=== PATIENT | female | born 1960 | race Caucasian/White ===

== ENCOUNTER → 2020-12-28 14:57 | Outpatient (BNVA) | payer SELFPAY | PROVIDERS: Family Provider Family Medicine; PCP Family Medicine; Visit Provider Emergency Medicine | DX: N39.0 Urinary tract infection, site not specified (principal); R11.0 Nausea; R31.9 Hematuria, unspecified | CPT/HCPCS: 81000 ==

== ENCOUNTER → 2024-06-29 14:13 | Outpatient (BNVA) | payer MEDICAID, SELFPAY | PROVIDERS: PCP Family Medicine; Visit Provider Family Medicine | DX: R32 Unspecified urinary incontinence (principal) | CPT/HCPCS: 81000; 87086 ==

== ENCOUNTER 2024-09-04 09:25 | Outpatient (CLI) | payer MEDICAID, SELFPAY ==
--- NOTE | 2024-09-04 09:30 | USR_ITS ---
PROCEDURE INFORMATION: Exam: US Soft Tissue Head and Neck, Thyroid Exam date and time: 09/04/2024 9:40 AM Age: 64 years old Clinical indication: Other: Hoarseness/dysphonia TECHNIQUE: Imaging protocol: Real-time ultrasound scan of the neck with image documentation. Exam focused on the thyroid. COMPARISON: No relevant prior studies available. FINDINGS: Thyroid isthmus was measured 0.3 cm. No normal thyroid tissue is detected in the right or the left however patient could have small residual thyroid tissue that blends in with the soft tissues. . History states previous thyroid ablation. I do not know if this was a smaller dose for hyperthyroidism or larger dose for carcinoma. Also I do not know how long ago this was performed. Further evaluation could be obtained with a neck CT or possibly nuclear medicine thyroid scan . There does appear to be a small normal appearing lymph node in the left thyroid fossa measuring 1.1 x 0.3 x 0.4 cm US/US thyroid [id number] IMPRESSION: See above
--- NOTE | 2024-09-04 09:33 | FL_ITS ---
WS: [id number] Exam: FL barium swallow modifd [id number] Date/Time of Exam: 09/04/2024 9:53 AM Reason For Exam: Pharyngeal dysphagia Fluoroscopy time: 2min [id number] minutes # of spot films: 0 Modified barium swallow test was performed in conjunction with the speech therapy service. The patient experienced very minimal penetration into the laryngeal inlet when ingesting thin liquid barium. The patient tolerated pudding and solid barium mixture foodstuffs without penetration or aspiration. The patient swallowed barium tablet without difficulty. The tablet was retained in the lower one third of the esophagus but was propelled into the stomach with a single drink of thin liquid barium. FL/FL barium swallow modifd [id number] IMPRESSION: 1. The patient experienced very minimal penetration when ingesting thin liquid barium. The exam was otherwise unremarkable. No aspiration was noted. A separate report and recommendations will follow from the speech therapy servi ce.
== END 2024-09-04 09:26 | disposition home or self-care (01) ==
PROVIDERS: PCP Family Medicine; Visit Provider Otolaryngology
DX: R49.0 Dysphonia (principal); E05.00 Thyrotoxicosis with diffuse goiter without thyrotoxic crisis or storm; R93.89 Abnormal findings on diagnostic imaging of other specified body structures
CPT/HCPCS: 74230; 76536; 92611

== ENCOUNTER → 2024-09-26 11:57 | Outpatient (BNVA) | payer MEDICARE, SELFPAY | PROVIDERS: PCP Family Medicine; Visit Provider Family Medicine | DX: I10 Essential (primary) hypertension (principal); E89.0 Postprocedural hypothyroidism; K21.9 Gastro-esophageal reflux disease without esophagitis; R49.0 Dysphonia; R32 Unspecified urinary incontinence | CPT/HCPCS: 80053; 80061; 84439; 84443; 85025 ==

== ENCOUNTER 2024-10-19 16:35 | Outpatient (CLI) | payer MEDICAID, SELFPAY ==
--- NOTE | 2024-10-19 16:47 | CT_ITS ---
WS: [id number] CT NECK TECHNIQUE: Contrast-enhanced CT of the neck with coronal and sagittal reformatted images. CLINICAL INFORMATION: DYSPHONIA, HOARSENESS COMPARISON: None. DLP: 208.[address] scans at [facility] use at least one of these dose optimization techniques: automated exposure control; mA and/or kV adjustment per patient size (includes targeted exams where dose is matched to clinical indication); or iterative reconstruction. FINDINGS: LEFT vocal cord paralysis with ballooning of the LEFT laryngeal ventricle. Medial rotation of the arytenoid. Normal posterior nasopharynx and parapharyngeal fat. No evidence of supraglottic or glottic mass. Normal subglottic airway. Normal submandibular glands. Fatty replacement of the parotid glands. Atrophic thyroid with nodularity. Enlarged lymph node LEFT lower neck with enhancement. Bulky lymphadenopathy supraclavicular, subpectoral, and bilateral axillary. Largest lymph nodes measure up to 2.2 cm with enhancement. Normal aortic arch. Lung apices are well aerated. Straightening of the normal cervical lordosis. Moderate spondylitic changes. CT/CT neck w con* [id number] IMPRESSION: 1. Prominent bulky supraclavicular, subpectoral, and axillary lymphadenopathy with enhancing lymph nodes. Enhancing lymph node in LEFT lower leg neck. Larges t lymph nodes measure up to 2.2 cm. Findings suspicious for metastatic disease or lymphoma. Recommend further evaluation with contrast-enhanced CT chest abdom en pelvis and/or PET/CT. Recommend oncology consultation. 2. LEFT vocal cord paralysis.
[2024-10-19] MEDS: iohexol 350 mg/mL 500 mL Btl (per mL) IV (17:13)
== END 2024-10-19 16:36 | disposition home or self-care (01) ==
PROVIDERS: PCP Family Medicine; Visit Provider Specialist
DX: R49.0 Dysphonia (principal); R13.19 Other dysphagia; R59.0 Localized enlarged lymph nodes; J38.01 Paralysis of vocal cords and larynx, unilateral
CPT/HCPCS: 70491

== ENCOUNTER 2024-10-26 16:38 | Outpatient (CLI) | payer MEDICAID, SELFPAY ==
--- NOTE | 2024-10-26 16:50 | CTR_ITS ---
PROCEDURE INFORMATION: Exam: CT Chest With Contrast; Diagnostic Exam date and time: 10/26/2024 5:09 PM Age: 64 years old Clinical indication: Abnormal findings; Abnormal radiologic exam of lung or chest; Lymphadenopathy seen on CT of neck 10-19-24 TECHNIQUE: Imaging protocol: Diagnostic computed tomography of the chest with contrast. Radiation optimization: All CT scans at this facility use at least one of these dose optimization techniques: automated exposure control; mA and/or kV adjustment per patient size (includes targeted exams where dose is matched to clinical indication); or iterative reconstruction. Contrast material: OMNIPAQUE 350; Contrast volume: 100 ml; Contrast route: INTRAVENOUS (IV); COMPARISON: CT neck w con* [id number] 10/19/2024 5:03 PM RADIATION DOSE METRICS: Total DLP (mGy-cm): 461.98 FINDINGS: Lungs: Unremarkable. No consolidation. No masses. Pleural spaces: Unremarkable. No pneumothorax. No pleural effusion. Heart: Unremarkable. No cardiomegaly. No pericardial effusion. Coronary arteries: No coronary artery calcifications. Lymph nodes: Bilateral axillary and left subpectoral lymphadenopathy, similar to prior with the largest node measuring 1.9 x 1.6 cm. Partially visualized enlarged left supraclavicular lymph node. Few subcentimeter mediastinal lymph nodes. No pathologic mediastinal lymphadenopathy. Vasculature: Unremarkable. No aortic aneurysm. Liver: Diffuse hepatic hypoattenuation. Gallbladder and biliary ducts: Status post cholecystectomy. No evidence of significant biliary obstruction. Bones/joints: Unremarkable. No acute fracture. Soft tissues: Unremarkable. CT/CT chest w con* [id number] IMPRESSION: 1. Bilateral axillary and left subpectoral lymphadenopathy, similar to prior with the largest node measuring 1.9 x 1.6 cm. Differential diagnosis again includes lymphoma and metastatic disease. 2. Few subcentimeter mediastinal lymph nodes. No pathologic mediastinal lymphadenopathy. 3. Hepatic steatosis.
[2024-10-26] MEDS: iohexol 350 mg/mL 500 mL Btl (per mL) IV (17:16)
== END 2024-10-26 16:39 | disposition home or self-care (01) ==
PROVIDERS: PCP Family Medicine; Visit Provider Specialist
DX: R59.9 Enlarged lymph nodes, unspecified (principal); K76.0 Fatty (change of) liver, not elsewhere classified; Z90.49 Acquired absence of other specified parts of digestive tract
CPT/HCPCS: 71260

== ENCOUNTER 2024-11-03 11:33 | Outpatient (CLI) | payer MEDICAID, SELFPAY ==
--- NOTE | 2024-11-03 11:38 | CTR_ITS ---
PROCEDURE INFORMATION: Exam: CT Chest With Contrast; Diagnostic Exam date and time: 11/03/2024 11:55 AM Age: 64 years old Clinical indication: Other: Enlarged lymph nodes; Additional info: Enlarged lymph nodes, stat TECHNIQUE: Imaging protocol: Diagnostic computed tomography of the chest with contrast. Radiation optimization: All CT scans at this facility use at least one of these dose optimization techniques: automated exposure control; mA and/or kV adjustment per patient size (includes targeted exams where dose is matched to clinical indication); or iterative reconstruction. Contrast material: OMNI 350; Contrast volume: 100 ml; Contrast route: INTRAVENOUS (IV); COMPARISON: CT chest w con* [id number] 10/26/2024 5:09 PM RADIATION DOSE METRICS: Total DLP (mGy-cm): 1018.48 FINDINGS: Lungs: Unremarkable. No consolidation. No masses. Pleural spaces: Unremarkable. No pneumothorax. No pleural effusion. Heart: Unremarkable. No cardiomegaly. No pericardial effusion. Coronary arteries: No coronary artery calcifications. Lymph nodes: Bilateral axillary lymphadenopathy measuring up to 1.7 cm on the left (series 4, image 11), and up to 1.1 cm on the right. Vasculature: Unremarkable. No aortic aneurysm. Bones/joints: Unremarkable. No acute fracture. Soft tissues: Unremarkable. PROCEDURE INFORMATION: Exam: CT Abdomen And Pelvis With Contrast Exam date and time: 11/03/2024 11:55 AM Age: 64 years old Clinical indication: Other: Enlarged lymph nodes; Additional info: Enlarged lymph nodes, stat TECHNIQUE: Imaging protocol: Computed tomography of the abdomen and pelvis with contrast. Radiation optimization: All CT scans at this facility use at least one of these dose optimization techniques: automated exposure control; mA and/or kV adjustment per patient size (includes targeted exams where dose is matched to clinical indication); or iterative reconstruction. Contrast material: OMNI 350; Contrast volume: 100 ml; Contrast route: INTRAVENOUS (IV); COMPARISON: CT chest w con* [id number] 10/26/2024 5:09 PM RADIATION DOSE METRICS: Total DLP (mGy-cm): 1018.48 FINDINGS: Liver: Diffuse hepatic steatosis. Gallbladder and biliary ducts: Status post cholecystectomy. Pancreas: No ductal dilation. Spleen: Unremarkable. Adrenal glands: Unremarkable. Kidneys and ureters: No hydronephrosis. Stomach and bowel: No obstruction. No mucosal thickening. Appendix: No evidence of appendicitis. Intraperitoneal space: No free air. No significant fluid collection. Vasculature: Unremarkable. Lymph nodes: Prominent bilateral inguinal and retroperitoneal lymph nodes without pathologic enlargement. Bilateral external iliac lymphadenopathy measuring up to 1.4 cm on the left and 1.5 cm on the right. Urinary bladder: Unremarkable as visualized. Reproductive: Unremarkable as visualized. Bones/joints: Unremarkable. No acute fracture. Soft tissues: Unremarkable. CT/CT chest abdpel w/*[id number] IMPRESSION: Bilateral axillary lymphadenopathy. Recommend correlation with soft tissue sampling. IMPRESSION: Bilateral external iliac lymphadenopathy and prominent retroperitoneal lymph nodes.
[2024-11-03] MEDS: iohexol 350 mg/mL 500 mL Btl (per mL) IV (11:59)
== END 2024-11-03 11:34 | disposition home or self-care (01) ==
LOC: RAD 11:34
PROVIDERS: PCP Family Medicine; Visit Provider Specialist
DX: R59.0 Localized enlarged lymph nodes (principal)
CPT/HCPCS: 71260; 74177

== ENCOUNTER 2024-12-06 12:01 | Outpatient (CLI) | payer MEDICAID, SELFPAY ==
--- NOTE | 2024-12-06 13:14 | US_ITS ---
WS: [id number] ULTRASOUND-GUIDED LEFT AXILLARY LYMPH NODE BIOPSY CLINICAL INFORMATION: LYMPH NODE ABNORMAL FINDINGS: The procedure including risks, benefits, and complications were discussed with the patient who agreed to proceed. Using sterile technique patient was prepped and draped in the usual sterile fashion. After 1% lidocaine utilizing real-time ultrasound guidance 5 14-gauge cores were obtained of the LEFT axillary lymph node.. No immediate complications. US/US biopsy lymph node [id number] IMPRESSION: 1. Uncomplicated ultrasound-guided LEFT axillary lymph node biopsy. 2. Pathology is pending.
[2024-12-07 13:04] LABS: Lymphoma Profile (BBPL) See Report
== END 2024-12-06 12:02 | disposition home or self-care (01) ==
LOC: RAD 12:01
PROVIDERS: PCP Family Medicine; Visit Provider Specialist
DX: R59.0 Localized enlarged lymph nodes (principal)
CPT/HCPCS: 38505; 76942; 88184; 88185; 88305

== ENCOUNTER → 2025-01-23 12:00 | Outpatient (BNVA) | payer MEDICAID, SELFPAY | PROVIDERS: PCP Family Medicine; Referring Provider Specialist; Visit Provider Internal Medicine Rheumatology | DX: M25.50 Pain in unspecified joint (principal) | CPT/HCPCS: 36415; 80076; 82306; 82565; 82607; 83520; 84439; 84443; 85025; 85651; 86140; 86160; 86162; 86200; 86235; 86255; 86376; 86431; 86480; 86704; 86803; 87340 ==

== ENCOUNTER 2025-02-22 12:01 | Outpatient (CLI) | payer MEDICAID, SELFPAY ==
[2025-02-22 13:34] LABS: Hematocrit 37.9 % (36-47); Hemoglobin 11.90 g/dL (11.27-16.99); Mean Corpuscular HGB Conc 31.4 g/dL (30-55); Mean Corpuscular Hemoglobin 27.6 pg (27-33); Mean Corpuscular Volume 87.9 fl (85-98); Nucleated Red Blood Cells % 0 %; Platelet Count 251 10^3/cmm (157-399); Red Blood Count 4.31 10^6/uL (3.85-5.65); White Blood Count 3.30 10^3/uL (3.29-11.43)
[2025-02-22 13:58] LABS: Alanine Aminotransferase 23 U/L (0-33); Albumin Level 4.3 g/dL (3.5-5.2); Alkaline Phosphatase 121 U/L (35-105); Aspartate Amino Transferase 29 U/L (0-32); Globulin 3.8 g/dL (1.3-4.6); Total Protein 8.1 g/dL (6.6-8.7)
== END 2025-02-22 12:02 | disposition home or self-care (01) ==
LOC: LAB 12:03
PROVIDERS: PCP Family Medicine; Visit Provider Internal Medicine Rheumatology
DX: Z79.899 Other long term (current) drug therapy (principal)
CPT/HCPCS: 36415; 80076; 82565; 85025; 85651; 86140

== ENCOUNTER → 2025-03-20 13:02 | Outpatient (BNVA) | payer MEDICAID, SELFPAY | PROVIDERS: PCP Family Medicine; Visit Provider Family Medicine | DX: Z12.4 Encounter for screening for malignant neoplasm of cervix (principal) | CPT/HCPCS: 87624 ==

== ENCOUNTER 2025-04-11 10:49 | Outpatient (CLI) | payer MEDICAID, SELFPAY ==
--- NOTE | 2025-04-11 11:00 | MM_ITS ---
WS: [id number] BILATERAL 3D TOMOSYNTHESIS DIGITAL SCREENING MAMMOGRAPHY WITH CAD CLINICAL INFORMATION: screening HISTORY: Screening mammogram. No current complaints. COMPARISON: 2023 TECHNIQUE: Bilateral CC and MLO views. FINDINGS: Scattered fibroglandular densities bilaterally. No suspicious focal mass, asymmetry, calcifications, or architectural distortion. No evidence of malignancy. Vascular calcification. Oil cyst LEFT breast. A few incidental punctate calcifications. MM/MM scr tomosynthesis [id number] IMPRESSION: DENSITY: There are scattered areas of fibroglandular density. BI-RADS: 2 - Benign. FOLLOW UP: 1 Year Follow-up Recommend return to annual screening mammography.
== END 2025-04-11 10:50 | disposition home or self-care (01) ==
LOC: RAD 10:54
PROVIDERS: PCP Family Medicine; Visit Provider Family Medicine
DX: Z12.31 Encounter for screening mammogram for malignant neoplasm of breast (principal); R92.323 Mammographic fibroglandular density, bilateral breasts; R92.1 Mammographic calcification found on diagnostic imaging of breast
CPT/HCPCS: 77063; 77067

== ENCOUNTER 2025-05-08 11:31 | Oncology outpatient (recurring) (ONCR) | payer MEDICAID, SELFPAY ==
[2025-05-08 11:47] LABS: Hematocrit 37.8 % (36-47); Hemoglobin 12.10 g/dL (11.27-16.99); Mean Corpuscular HGB Conc 32.0 g/dL (30-55); Mean Corpuscular Hemoglobin 28.1 pg (27-33); Mean Corpuscular Volume 87.9 fl (85-98); Nucleated Red Blood Cells % 0 %; Platelet Count 202 10^3/cmm (157-399); Red Blood Count 4.30 10^6/uL (3.85-5.65); White Blood Count 3.76 10^3/uL (3.29-11.43)
[2025-05-08 12:15] LABS: Alanine Aminotransferase 14 U/L (0-33); Albumin Level 4.3 g/dL (3.5-5.2); Alkaline Phosphatase 121 U/L (35-105); Anion Gap 14.5 (5-19); Aspartate Amino Transferase 20 U/L (0-32); Blood Urea Nitrogen 14 mg/dL (8-23); Calcium 11.0 mg/dL (8.5-10.5); Carbon Dioxide 26 mmol/L (22-29); Chloride 106 mmol/L (98-107); Ferritin 132 ng/mL (15-150); Globulin 3.4 g/dL (1.3-4.6); Glucose 95 mg/dL (65-115); Iron 51 ug/dL (37-145); Osmolality Calculated 294 mOsm/kg (285-295); Potassium 4.5 mmol/L (3.5-5.1); Sodium 142 mmol/L (136-145); Total Iron Binding Capacity 300 mcg/dl; Total Protein 7.7 g/dL (6.6-8.7); Unsaturated Iron Binding 249 ug/dL (112-347)
[2025-05-08 12:47] LABS: Vitamin B12 > 2000 pg/mL (232-1245)
== END 2025-05-16 23:59 | disposition home or self-care (01) ==
PROVIDERS: PCP Family Medicine; Visit Provider Internal Medicine Medical Oncology
DX: D64.9 Anemia, unspecified (principal); D72.819 Decreased white blood cell count, unspecified
CPT/HCPCS: 80053; 82607; 82728; 82746; 83540; 83550; 85025